=== PATIENT | male | born 1980 | race Caucasian/White ===

== ENCOUNTER 2017-02-07 22:21 | Emergency (ER) | payer MEDICAID ==
[2017-02-07 22:35] VITALS: BP 136/96; PULSE 95; RESP 20; TEMP 98.9; O2SAT 96
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
== END 2017-02-07 23:34 | disposition left against medical advice (07) ==
LOC: C.ER 22:21
DX: R51 Headache (principal)